=== PATIENT | male | born 2005 | race Two or more races ===

== ENCOUNTER 2024-06-30 19:50 | Emergency (ER) | payer MEDICAID, SELFPAY ==
[2024-06-30 19:52] VITALS: BMI 28.1
[2024-06-30 20:10] VITALS: BP 136/78; PULSE 94; RESP 20; TEMP 36.8; O2SAT 99
--- NOTE | 2024-06-30 20:15 | PD.EDADULT ---
ED General RME/HPI General Chief complaint: General Adult/Misc Complain Stated complaint: EXPOSED TO OLEANDER PLANT Time Seen by Provider: 06/30/24 19:54 Arrival date/time: 06/30/24 19:50 19-year-old male presents to the emergency department reporting was working doing yard work when he grabbed [employer] plant with his hands and wash them afterwards. Patient reports developed headache after he was told the plant might be poisonous and decided to come to the ER to get evaluated. At time of arrival to the ER patient denies any headache, nausea vomiting, chest pain, shortness of breath, rash, or any other associated symptom. Limitations: no limitations Related Data Home Medications ?Medication ?Instructions ?Recorded ?Confirmed albuterol sulfate 90 mcg/actuation 2 puff inhalation Q4H 11/17/21 11/17/21 aerosol inhaler fluticasone propionate 44 2 puff inhalation BID 11/17/21 11/17/21 mcg/actuation HFA aerosol inhaler (Flovent HFA) lisdexamfetamine 40 mg capsule 1 cap PO QDAY 11/17/21 11/17/21 (Vyvanse) Allergies Allergy/AdvReac Type Severity Reaction Status Date / Time No Known Allergies Allergy Verified 06/30/24 19:54 Review of Systems Review of Systems Systems Reviewed: All systems reviewed, normal except as documented Constitutional Constitutional: Reports system reviewed and no additional complaints, except as documented, Denies body ache(s), Denies chills, Denies fever(s) and Reports headache(s) Eyes Eyes: Reports system reviewed and no additional complaints, except as documented and Denies change in vision ENT Ears, Nose, Mouth, and Throat: Reports system reviewed and no additional complaints, except as documented, Denies disequilibrium, Denies dizziness, Reports headache(s), Denies sore throat and Denies vertigo Cardiovascular Cardiovascular: Reports system reviewed and no additional complaints, except as documented, Denies chest pain and Denies dyspnea Respiratory Respiratory: Reports system reviewed and no additional complaints, except as documented, Denies chest congestion, Denies cough and Denies dyspnea Gastrointestinal Gastrointestinal: Reports system reviewed and no additional complaints, except as documented, Denies abdominal pain, Denies nausea and Denies vomiting Musculoskeletal Musculoskeletal: Reports system reviewed and no additional complaints, except as documented, Denies abnormal gait and Denies arthralgias Integumentary/Breasts Skin/Breast: Reports system reviewed and no additional complaints, except as documented, Denies erythema, Denies rash and Denies wounds Neurologic Neurologic: Reports system reviewed and no additional complaints, except as documented, Denies abnormal gait, Denies disequilibrium, Denies dizziness, Reports headache(s) and Denies vertigo Past Medical History Past Medical History CARDIAC: Negative Congestive Heart Failure RESPIRATORY: Negative Chronic Obstructive Pulmonary Disease (COPD) GENITOURINARY: Negative Renal Disease ENDOCRINE: Negative Diabetes Mellitus Type 1 or Diabetes Mellitus Type 2 PSYCHO/SOCIAL: Positive Depression, Anxiety and Attention Deficit Hyperactivity Disorder OTHER HISTORY: Positive Autism Surgical History SURGICAL: Positive Ear Surgery Social History SMOKING STATUS: Never smoker SUBSTANCE USE: unknown ED Exam General Limitations: Present no limitations General appearance: Present alert and in no apparent distress Head Head exam: Present atraumatic Eye Eye exam: Present normal appearance, PERRL and EOMI ENT ENT exam: Present normal exam, normal oropharynx and mucous membranes moist Neck Neck exam: Present normal inspection, full ROM and trachea midline Chest Chest inspection: Present normal inspection and symmetric chest wall rise Respiratory Respiratory exam: Present normal lung sounds bilaterally Cardiovascular Cardiovascular exam: Present regular rate, normal rhythm and normal heart sounds Abdominal Exam Abdominal exam: Present soft and normal bowel sounds Extremities Exam Extremities exam: Present normal inspection and full ROM Back Exam Back exam: Present normal inspection and full ROM Neurological Exam Neurological exam: Present alert, oriented X3 and CN II-XII intact Psychiatric Psychiatric exam: Present normal affect and normal mood Skin Skin exam: Present warm, dry, intact and normal color Course Quality Measures none Vital Signs Vital signs: Vital Signs Temperature 98.3 F 06/30/24 20:10 Pulse Rate 94 06/30/24 20:10 Respiratory Rate 20 06/30/24 20:10 Blood Pressure 136/78 H 06/30/24 20:10 Pulse Oximetry (%) 99 06/30/24 20:10 Oxygen Delivery Method Room Air 06/30/24 20:10 99% room air within normal limits MDM Patient data External records reviewed:: [facility] previous records Clinical information provided by:: patient Social determinants that could affect healthcare access:: none Patient has the following chronic illnesses:: See chart How is presenting disease/condition affected by chronic disease/condition?: uneffected by Evaluation data The following diagnostics were reviewed and interpreted by me:: other (specify) (N/A) Lab and/or radiology exams considered but not ordered:: N/A Interpretation Summary: N/A Medications Medications considered but not ordered:: N/A Medication administrations:: N/A Consultations Consultation(s) initiated? (list below): No Diagnosis Differential Diagnosis ED Complaint MDM: Poison intoxication Most likely diagnosis given after review of the tests above:: Accidental poisoning from foodstuff or poisonous plant Admission Indicated Admission indicated?: not indicated Explain why admission is indicated or not indicated:: No admission criteria Admission Request Was there a request for admission?: No Disposition Plan Disposition Plan: Discharge Discharge Attestation Discharge Attestation: The patient and all family members were given an opportunity to ask questions and understood the discharge instructions. Discharge instructions specifically effects, indications for sooner follow up or return to the emergency department, and the expected course of current diagnosis. Patient condition: Stable Medical Decision Making MDM Narrative MDM Narrative: 19-year-old male presents to the emergency department reporting was working doing yard work when he grabbed [employer] plant with his hands and washed them afterwards. Patient reports developed headache after he was told the plant might be poisonous and decided to come to the ER to get evaluated. At time of arrival to the ER patient denies any headache, nausea vomiting, chest pain, shortness of breath, rash, or any other associated symptom. Patient reports did not ingest blood and just briefly touched with palms of her hands and then washed afterwards. Poison control contacted personal name Enrique reported no risk for intoxication if patient did not ingest plant and recommends monitoring at home with frequent washing of hand with water and soap. Patient appears nontoxic and is hemodynamic stable. Patient stable for discharge with close follow-up with primary care provider. Differential Diagnosis Differential Diagnosis: Poison intoxication Discharge Plan Plan Patient Disposition: HOME (Self Care) Disposition Comment: Stable Prescriptions/Referrals Prescriptions/Med Rec: No Action Flovent HFA 44 mcg/actuation HFA aerosol inhaler 2 puff INHALATION BID Patient Comments: inhale 1 to 2 puffs by mouth twice a day albuterol sulfate 90 mcg/actuation HFA aerosol inhaler 2 puff INHALATION Q4H Patient Comments: inhale 1 to 2 puffs by mouth every 4 hours if needed Vyvanse 40 mg capsule 1 cap PO QDAY Patient Comments: take 1 capsule by mouth every morning Problem List Clinical Impression: Accidental poisoning from foodstuff or poisonous plant Patient/Caregiver Discharge Instructions Discharge Activity: activity as tolerated Additional Instructions: Wash hands thoroughly with warm water and soap. Drink plenty of water and get plenty of rest. Close follow-up with primary care provider in 24 to 48 hours. Return to emergency department for any worsening headache, nausea vomiting, difficulty breathing, chest pain, rash, or as needed. Print Language: [place] Stand Alone Forms: Elli Award Info., Patient Portal Info Letter PA/COMMERCIAL [employer] Supervising Physician PA/[employer] Supervising Physician: Dr. Boone
== END 2024-06-30 20:57 | disposition home or self-care (01) ==
PROVIDERS: Emergency Provider Emergency Medicine; PCP Nurse Practitioner Family
DX: A05.9 Bacterial foodborne intoxication, unspecified (principal)
CPT/HCPCS: 99281